=== PATIENT | male | born 1985 | race African-American/Black ===

== ENCOUNTER 2018-04-07 23:35 | Emergency (ER) | payer OTHER ==
[~2018-04-07] VITALS: Ht 182.9 cm; Wt 85.0 kg
[2018-04-07 23:42] VITALS: BP 127/97
== END 2018-04-08 00:28 | disposition home or self-care (01) ==
LOC: ED 23:44
DX: R11.2 Nausea with vomiting, unspecified (principal); Z02.79 Encounter for issue of other medical certificate; Z87.891 Personal history of nicotine dependence
CPT/HCPCS: 93005; 99283